=== PATIENT | male | born 1970 | race African-American/Black ===

== ENCOUNTER 2017-08-19 11:04 | Inpatient (IN) | payer OTHER ==
[~2017-08-19] VITALS: Ht 185.4 cm; Wt 121.1 kg
[~2017-08-19 11:04] MED LIST: HYDROCODON-ACE1 EAC7 PO; LISINOPRIL20 MG PO; NORCO 5-325 TA1 EACH PO; PERCOCET 5-3251 EACH PO; ZANTAC 150MG T150 MG PO; ZOFRAN4 MG PO
[2017-08-19 11:11] VITALS: BP 185/100
[2017-08-19 11:57] LABS: URINE BILIRUBIN NEGATIVE (Negative); URINE BLOOD 3+ (Negative); URINE CLARITY CLEAR; URINE COLOR YELLOW; URINE GLUCOSE-RANDOM NEGATIVE (Negative); URINE KETONES NEGATIVE (Negative); URINE LEUKOCYTES NEGATIVE (Negative); URINE NITRITE NEGATIVE (Negative); URINE PROTEIN NEGATIVE (Negative); URINE UROBILINOGEN 0.2 E.U./dl (0.2-1.0)
[2017-08-19 12:10] LABS: BACTERIA 1-9 Few /HPF (None Seen); CASTS None Seen /LPF (None Seen); CRYSTALS None Seen /LPF (None Seen); MUCUS 0-3 Light strn/LPF (None Seen); SQUAMOUS 0-3 Few /LPF (0-3); URINE WBC 0-5 Rare /HPF (0-5)
--- NOTE | 2017-08-19 12:15 | NUR ---
CT ABD PEL W/O COMPLEATED PT RETURNED TO ED
[2017-08-19 13:19] LABS: ABSOLUTE LYMPHOCYTES 0.9 thou/uL (0.8-5.3); ABSOLUTE MONOCYTES 0.4 thou/uL (0.0-1.2); BASOPHILS 0.5 %; EOSINOPHILS 0.6 %; HEMATOCRIT 44.7 % (42.0-52.0); HEMOGLOBIN 14.7 gm/dL (14.0-18.0); LYMPHOCYTES 13.7 %; MCH 29.3 pg (26.0-34.0); MCHC 32.9 g/dL (28.0-37.0); MCV 89.1 fL (80.0-100.0); MONOCYTES 5.7 %; MPV 7.4 fl. (7.2-11.1); NUCLEATED RBCS 0 /100WBC; PLATELET COUNT* 194 thou/uL (150-400); POLYS 79.5 %; RBC 5.01 mil/uL (4.50-6.00); RDW-CV 15.1 % (10.5-14.5); WBC 6.2 thou/uL (4.0-11.0)
[2017-08-19 13:52] LABS: ALKALINE PHOSPHATASE 65 U/L (46-116); ANION GAP 10 mmol/L (7-16); BUN 14 mg/dL (7-18); CALCIUM 9.2 mg/dL (8.5-10.1); CHLORIDE 104 mmol/L (98-107); CO2 27 mmol/L (21-32); GLUCOSE 112 mg/dL (70-99); LIPASE 83 U/L (73-393); POTASSIUM 4.2 mmol/L (3.5-5.1); SGOT 15 U/L (15-37); SGPT 29 U/L (30-65); SODIUM 141 mmol/L (136-145); TOTAL BILIRUBIN 0.3 mg/dL (<0.1-1.0); TOTAL PROTEIN 7.9 g/dL (6.4-8.2); TROPONIN-I LEVEL <0.06 ng/mL (<0.06)
--- NOTE | 2017-08-19 15:29 | EKG ---
[place] [address] ELECTROCARDIOGRAM REPORT Name: NÉSTOR OTERO Room: [address] M.R.#: [id number] Admission: 08/19/17 Attend Phys: Jameson Garvin Discharge: Date of : 70 Report #: [id number] THIS REPORT FOR: //name// [facility] ED Test Date: 2017-08-19 Test Time: 12:17:57 Pat Name: NÉSTOR OTERO Department: Room: [facility] Gender: M Translation Director: MS : 1970 Requested By: Miracle Wright Order Number: [id number] MD: Mik Hahn Measurements Intervals [place] Rate: 64 P: 15 [place]: 176 QRS: -48 QRSD: 94 T: 16 QT: 420 QTc: 434 Interpretive Statements Sinus rhythm LAD, consider left anterior fascicular block Compared to ECG 10/08/2016 15:54:07 T-wave abnormality no longer present Electronically Signed On 08-19-2017 15:29:19 AGILE TESTER by Mik Hahn [email or web address] <ELECTRONICALLY SIGNED> By: Mik Hahn MD, [facility] 08/19/17 1529 1217 1217 Mik Hahn MD, [facility] /EPI
[2017-08-19 15:57] VITALS: BP 130/78
[2017-08-19 16:50] VITALS: BP 174/91
--- NOTE | 2017-08-19 18:42 | NUR ---
PATIENT ARRIVED FROM ER AND SETTLED TO ROOM. PATIENT IS SLEEPY BUT ANSWERS QUESTIONS APPROPRIATELY. PATIENT HAS COMPLAINTS OF ABDOMINAL PAIN AND NAUSEA WITH VOMITING, TREATED PARTIALLY WITH MEDICATION. PATIENT IS NPO. PATIENT HAS CALL LIGHT WITHIN REACH. WILL CONTINUE TO MONITOR.
[2017-08-20 00:23] VITALS: BP 127/78
--- NOTE | 2017-08-20 04:30 | NUR ---
PATIENT SLEPT PART OF THE NIGHT. PATIENT ACCIDENTLY PULLED OUT IV. NEW IV WAS STARTED CHARTED. IV FLUIDS CONTINUE TO INFUSE AT 100 ML/HR. PATIENT WAS GIVEN PAIN AND NAUSEA MEDICINE TWICE THIS SHIFT WITH SOME RELIEF. PATIENT HAS STILL VOMITED A FEW TIMES. WILL CONTINUE TO MONITOR.
[2017-08-20 07:50] VITALS: BP 144/79
[2017-08-20 16:00] VITALS: BP 142/86
--- NOTE | 2017-08-20 16:57 | NUR ---
PATIENT RESTING IN BED. PATIENT HAS DENIED ANY NAUSEA TODAY AND IS TOLERATING REGULAR DIET. PATIENT HAD COMPLAINTS OF HEADACHE TREATED ADEQUATELY WITH TYLENOL. PATIENT HAD COMPLAINTS OF ABDOMINAL PAIN X 1 THIS AM TREATED WITH MORPHINE. PATIENT DENIES ANY NEEDS AT THIS TIME. CALL LIGHT WITHIN REACH. WILL CONTINUE TO MONITOR.
[2017-08-20 19:47] VITALS: BP 125/76
--- NOTE | 2017-08-21 05:08 | NUR ---
PT SLEPT AT INTERVALS DURING THE NIGHT, IV FLUIDS INFUSED, PRN PAIN MEDS PER REQUEST, PRN SLEEPING MED WITH RESULTS, PLEASANT, LARGE BM TONIGHT, CALL LIGHT IN REACH, WILL CONTINUE TO MONITOR
[2017-08-21 08:00] VITALS: BP 121/73
[2017-08-21 13:03] VITALS: BP 121/73
--- NOTE | 2017-08-21 15:26 | NUR ---
ASSUMED CARE THIS AM. MIGRAINE HEADACHE TREATED WELL WITH MORPHINE. ORDERS RECEIVED TO DISCHARGE. IV DISCONTINUED WITHOUT INCIDENT. DISCHARGE MEDICATION AND FOLLOW UP APPOINTMENTS DISCUSSED WITH AND GIVEN TO PATIENT, DENIES QUESTIONS AT THIS TIME. INDEPENDENTLY DRESSED SELF AND GATHERED PERSONAL EFFECTS, IN COMPANY OF PATIENT. AMBULATED WITHOUT DIFFICULTY IN COMPANY OF THIS ENVIRONMENTAL HEALTH SAFETY MANAGER TO MAIN ENTRANCE IN STABLE CONDITION.
--- NOTE | 2017-08-23 16:29 | CON ---
[address] [address] CONSULTATION Name: NÉSTOR OTERO Room: [address] M.R.#: [id number] Admission: 08/20/17 Attend Phys: Jameson Garvin Discharge: 08/21/17 Date of : 70 Report #: [id number] THIS REPORT FOR: //name// CC: RASHIDA physician/PCP Cooper Back DATE OF SERVICE: 08/20/2017 REASON FOR CONSULT: Epigastric pain and persistent vomiting. HISTORY OF PRESENT ILLNESS: This is a 47-year-old male with long history of intermittent abdominal pain and vomiting with completely symptom free episodes in between. He reports to me that he has been scoped multiple times in [facility], [facility], and [facility]. The patient reports that he also was given amitriptyline in the past, but they stopped it since it was not helping him much. He reports that his symptoms started when he started having right upper quadrant pain, which made him later that night sick to his stomach and since he was getting weaker as his vomiting was persisting, he decided to seek help. Since hospitalization, the patient had laboratory workup and CT imaging, which has been unrevealing. His lipase and liver function tests are all within normal limits. PAST MEDICAL HISTORY: Significant for history of cyclic vomiting syndrome with episodes of nausea, vomiting and abdominal pain with periods which are completely symptom free in between. The patient also has had gallbladder surgery due to cholelithiasis. He takes ranitidine for GERD and has hypertension. ALLERGIES AND MEDICATIONS: Please refer to hospital MAR. SOCIAL HISTORY: The patient admits to smoking marijuana. He denies tobaccoism, but may occasionally have alcoholic beverage. FAMILY HISTORY: Noncontributory. PHYSICAL EXAMINATION: VITAL SIGNS: Reveals blood pressure of 144/79, respirations 16, pulse 59, temperature 97.7. LUNGS: Clear. CARDIOVASCULAR: Regular. ABDOMEN: Soft, tender to palpation in the epigastric region. Bowel sounds are positive. NEUROLOGIC: The patient is alert, [place] [address] [address] CONSULTATION Name: OTERONÉSTOR Room: [address]#: [id number] Admission: 08/20/17 Attend Phys: Jameson Garvin Discharge: 08/21/17 Date of : 70 Report #: [id number] LABORATORY DATA: Reveal sodium of 141, potassium 4.2, BUN is 14, creatinine 1.0, glucose 112. AST is 15, ALT 29, alkaline phosphatase 65, total bilirubin 0.3, lipase 83. WBC is 6.2 with hemoglobin of 14.7 and platelet of 194. IMAGING: As discussed above. 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 We will ask him to remain abstinent from marijuana. He reports that he also has problem with constipation and currently feels constipated as he has not had bowel movement since . We will give him 10 ounce of magnesium citrate and then put him on MiraLax 17 g p.o. at bedtime. We will also place him on Protonix 40 mg q.a.m. and discontinue ranitidine. We will obtain his records from his previous endoscopies and make further recommendation. <ELECTRONICALLY SIGNED> By: Israel Plaza MD 08/23/17 1629 1426 [id number] Plaza MD /nt
[2018-03-30] MEDS ORDERED: PHENERGAN 25 MG25 MG PO (00:51)
[2018-03-30] MEDS ORDERED: ZOFRAN4 MG PO (00:51)
== END 2017-08-21 15:45 | disposition home or self-care (01) | DRG 694 ==
LOC: M.ERS 11:04 → M.TBA-ER 14:38 → M.3W 16:51
PROVIDERS: Physician Assistant; ADMIT Internal Medicine
DX: N20.0 Calculus of kidney (principal); K21.9 Gastro-esophageal reflux disease without esophagitis; I10 Essential (primary) hypertension; E86.0 Dehydration; K59.00 Constipation, unspecified; K52.9 Noninfective gastroenteritis and colitis, unspecified; G43.109 Migraine with aura, not intractable, without status migrainosus; Z90.49 Acquired absence of other specified parts of digestive tract; Z28.21 Immunization not carried out because of patient refusal

== ENCOUNTER 2017-08-30 03:28 | Emergency (ER) | payer OTHER ==
[~2017-08-30] VITALS: Ht 185.4 cm; Wt 113.4 kg
[2017-08-30 04:19] LABS: ABSOLUTE LYMPHOCYTES 0.5 thou/uL (0.8-5.3); ABSOLUTE MONOCYTES 0.3 thou/uL (0.0-1.2); ABSOLUTE NEUTROPHILS 4.4 thou/uL (1.6-8.1); BASOPHILS 0.2 %; EOSINOPHILS 0.1 %; HEMATOCRIT 40.1 % (42.0-52.0); HEMOGLOBIN 12.9 gm/dL (14.0-18.0); MCH 28.5 pg (26.0-34.0); MCV 89.1 fL (80.0-100.0); MPV 7.7 fl. (7.2-11.1); NUCLEATED RBCS 0 /100WBC; PLATELET COUNT* 173 thou/uL (150-400); POLYS 84.7 %; RBC 4.51 mil/uL (4.50-6.00); RDW-CV 14.8 % (10.5-14.5); WBC 5.2 thou/uL (4.0-11.0)
[2017-08-30 04:35] LABS: ANION GAP 13 mmol/L (7-16); BUN 16 mg/dL (7-18); CALCIUM 8.1 mg/dL (8.5-10.1); CHLORIDE 107 mmol/L (98-107); CO2 24 mmol/L (21-32); CREATININE 0.9 mg/dL (0.6-1.3); GLUCOSE 140 mg/dL (70-99); POTASSIUM 3.6 mmol/L (3.5-5.1); SODIUM 144 mmol/L (136-145)
[2017-08-30 04:44] LABS: ALBUMIN 3.4 g/dL (3.4-5.0); ALKALINE PHOSPHATASE 49 U/L (46-116); LIPASE 72 U/L (73-393); SGOT 14 U/L (15-37); SGPT 22 U/L (30-65); TOTAL BILIRUBIN 0.5 mg/dL (<0.1-1.0); TOTAL PROTEIN 6.6 g/dL (6.4-8.2); TROPONIN-I LEVEL <0.06 ng/mL (<0.06)
[2017-08-30 05:36] LABS: URINE BILIRUBIN NEGATIVE (Negative); URINE BLOOD 3+ (Negative); URINE CLARITY CLEAR; URINE COLOR YELLOW; URINE GLUCOSE-RANDOM NEGATIVE (Negative); URINE KETONES TRACE (Negative); URINE LEUKOCYTES-REFLEX NEGATIVE (Negative); URINE NITRITE-REFLEX NEGATIVE (Negative); URINE PROTEIN TRACE (Negative); URINE SPECIFIC GRAVITY >= 1.030 (1.005-1.030); URINE UROBILINOGEN 0.2 E.U./dl (0.2-1.0)
[2017-08-30] MEDS ORDERED: ZOFRAN ODT4 MG PO (05:42)
[2017-08-30 05:43] LABS: AMP/METHAMP Negative (Negative); BACTERIA-REFLEX 1-9 Few /HPF (None Seen); BARBITURATES Negative (Negative); BENZODIAZEPINES Negative (Negative); CASTS None Seen /LPF (None Seen); COCAINE Negative (Negative); CRYSTALS None Seen /LPF (None Seen); METHADONE Negative (Negative); MUCUS 4-6 Moderate strn/LPF (None Seen); OPIATES Negative (Negative); PCP Negative (Negative); SQUAMOUS 0-3 Few /LPF (0-3); THC POSITIVE (Negative); URINE RBC 3-10 Few /HPF (0-2); URINE WBC-REFLEX 0-5 Rare /HPF (0-5)
[2017-08-30 05:54] VITALS: BP 148/98
--- NOTE | 2017-08-30 17:43 | EKG ---
[place] [address] ELECTROCARDIOGRAM REPORT Name: NÉSTOR OTERO Room: [facility]#: [id number] Admission: 08/30/17 Attend Phys: Discharge: 08/30/17 Date of : 70 Report #: [id number] THIS REPORT FOR: //name// [facility] ED Test Date: 2017-08-30 Test Time: 04:06:37 Pat Name: NÉSTOR OTERO Department: Room: Gender: M Multimedia Instructional Designer: ALBA : 1970 Requested By: Brett Dick Order Number: [id number] MD: Nathanael Kenyon Measurements Intervals [place] Rate: 63 P: 39 [place]: 187 QRS: -51 QRSD: 98 T: -8 QT: 434 QTc: 445 Interpretive Statements Sinus rhythm Left anterior fascicular block Borderline T abnormalities, inferior leads Compared to ECG 08/19/2017 12:17:57 T-wave abnormality now present Electronically Signed On 08-30-2017 17:43:46 HELP DESK TECHNICIAN by Nathanael Kenyon [email or web address] <ELECTRONICALLY SIGNED> By: Nathanael Kenyon MD, [facility] 08/30/17 1743 0406 0406 Nathanael Kenyon MD, [facility] /EPI
[2018-03-30] MEDS ORDERED: PHENERGAN 25 MG25 MG PO (00:51)
[2018-03-30] MEDS ORDERED: ZOFRAN4 MG PO (00:51)
== END 2017-08-30 05:55 | disposition home or self-care (01) ==
LOC: M.ERS 03:28
PROVIDERS: Emergency Medicine Emergency Medical Services
DX: G43.A0 Cyclical vomiting, in migraine, not intractable (principal); K21.9 Gastro-esophageal reflux disease without esophagitis; I10 Essential (primary) hypertension; F17.210 Nicotine dependence, cigarettes, uncomplicated

== ENCOUNTER 2018-02-05 13:08 | Emergency (ER) | payer OTHER ==
[~2018-02-05] VITALS: Ht 185.4 cm; Wt 108.9 kg
[~2018-02-05 13:08] MED LIST changes: +ZOFRAN ODT4 MG PO
[2018-02-05] MEDS ORDERED: IBUPROFEN 800800 M1 PO (13:17)
[2018-02-05] MEDS ORDERED: ANTIBIOTIC (13:17)
[2018-02-05] MEDS ORDERED: PENICILLIN VK500 MG PO (13:53)
[2018-02-05] MEDS ORDERED: ULTRAM 50MG TAB50 MG PO (13:53)
[2018-02-05 14:17] VITALS: BP 140/82
[2018-03-30] MEDS ORDERED: PHENERGAN 25 MG25 MG PO (00:51)
[2018-03-30] MEDS ORDERED: ZOFRAN4 MG PO (00:51)
== END 2018-02-05 14:19 | disposition home or self-care (01) ==
LOC: M.ERS 13:08
DX: K08.89 Other specified disorders of teeth and supporting structures (principal); I10 Essential (primary) hypertension; Z90.49 Acquired absence of other specified parts of digestive tract; F17.210 Nicotine dependence, cigarettes, uncomplicated; F12.10 Cannabis abuse, uncomplicated

== ENCOUNTER 2018-03-29 11:37 | Emergency (ER) | payer OTHER ==
[~2018-03-29] VITALS: Ht 177.8 cm; Wt 115.3 kg
[~2018-03-29 11:37] MED LIST changes: +ANTIBIOTIC; +IBUPROFEN 800800 M1 PO; +PENICILLIN VK500 MG PO; +ULTRAM 50MG TAB50 MG PO
[2018-03-29] MEDS ORDERED: ZOFRAN ODT4 MG SUBLING (12:16)
[2018-03-29 12:47] VITALS: BP 184/91
--- NOTE | 2018-03-29 16:44 | EKG ---
[place] [address] ELECTROCARDIOGRAM REPORT Name: NÉSTOR OTERO Room: [facility]#: [id number] Admission: 03/29/18 Attend Phys: Discharge: 03/29/18 Date of : 70 Report #: [id number] THIS REPORT FOR: //name// [facility] ED Test Date: 2018-03-29 Test Time: 11:43:13 Pat Name: NÉSTOR OTERO Department: Room: Gender: M Weapons Mechanic: Richy LEDESMA : 1970 Requested By: [place] Order Number: [id number] MD: Markus Patel Measurements Intervals [place] Rate: 54 P: 52 [place]: 185 QRS: -31 QRSD: 97 T: 1 QT: 451 QTc: 428 Interpretive Statements Sinus bradycardia poor r wave progression Left anterior fasicular block Baseline wander in lead(s) II,III,aVL,aVF,V1,V3,V4,V5,V6 Compared to ECG 08/30/2017 04:06:37 rate slowed Electronically Signed On 03-29-2018 16:44:25 CDT by Markus Patel [email or web address] <ELECTRONICALLY SIGNED> By: Markus Patel MD, [facility] 03/29/18 1644 1143 1143 Markus Patel MD, [facility] /EPI
[2018-03-30] MEDS ORDERED: ZOFRAN4 MG PO (00:51)
[2018-03-30] MEDS ORDERED: PHENERGAN 25 MG25 MG PO (00:51)
== END 2018-03-29 12:48 | disposition home or self-care (01) ==
LOC: M.ERS 11:37
DX: G89.29 Other chronic pain (principal); R10.10 Upper abdominal pain, unspecified; G43.A0 Cyclical vomiting, in migraine, not intractable; I10 Essential (primary) hypertension; F17.210 Nicotine dependence, cigarettes, uncomplicated; Z90.49 Acquired absence of other specified parts of digestive tract

== ENCOUNTER 2018-03-29 21:45 | Emergency (ER) | payer OTHER ==
[~2018-03-29] VITALS: Ht 185.4 cm; Wt 115.7 kg
[~2018-03-29 21:45] MED LIST changes: +ZOFRAN ODT4 MG SUBLING
[2018-03-29 22:54] LABS: HEMATOCRIT 44.3 % (42.0-52.0); HEMOGLOBIN 14.9 gm/dL (14.0-18.0); MCH 29.8 pg (26.0-34.0); MCHC 33.6 g/dL (28.0-37.0); MCV 88.5 fL (80.0-100.0); MPV 8.3 fl. (7.2-11.1); NUCLEATED RBCS 0 /100WBC; PLATELET COUNT* 234 thou/uL (150-400); RBC 5.01 mil/uL (4.50-6.00); RDW-CV 14.2 % (10.5-14.5); WBC 7.9 thou/uL (4.0-11.0)
[2018-03-29 23:22] LABS: ABSOLUTE LYMPHOCYTES 0.2 thou/uL (0.8-5.3); ABSOLUTE MONOCYTES 0.5 thou/uL (0.0-1.2); ABSOLUTE NEUTROPHILS 7.2 thou/uL (1.6-8.1); PLATELET ESTIMATE ADEQUATE
[2018-03-29 23:56] LABS: POTASSIUM 3.8 mmol/L (3.5-5.1)
[2018-03-29 23:57] LABS: ALBUMIN 3.9 g/dL (3.4-5.0); CALCIUM 9.2 mg/dL (8.5-10.1); TOTAL BILIRUBIN 0.4 mg/dL (<0.1-1.0); TOTAL PROTEIN 7.9 g/dL (6.4-8.2)
[2018-03-30 00:02] LABS: URINE BILIRUBIN NEGATIVE (Negative); URINE BLOOD 3+ (Negative); URINE CLARITY CLEAR; URINE COLOR YELLOW; URINE GLUCOSE-RANDOM NEGATIVE (Negative); URINE KETONES TRACE (Negative); URINE LEUKOCYTES-REFLEX NEGATIVE (Negative); URINE NITRITE-REFLEX NEGATIVE (Negative); URINE PROTEIN 1+ (Negative); URINE SPECIFIC GRAVITY 1.025 (1.005-1.030); URINE UROBILINOGEN 0.2 E.U./dl (0.2-1.0)
[2018-03-30 00:10] LABS: BACTERIA-REFLEX 1-9 Few /HPF (None Seen); CASTS None Seen /LPF (None Seen); CRYSTALS None Seen /LPF (None Seen); MUCUS >6 Heavy strn/LPF (None Seen); SQUAMOUS 0-3 Few /LPF (0-3); URINE RBC >20 Many /HPF (0-2); URINE WBC-REFLEX None Seen /HPF (0-5)
[2018-03-30 00:12] LABS: AMP/METHAMP Negative (Negative); BARBITURATES Negative (Negative); BENZODIAZEPINES Negative (Negative); COCAINE Negative (Negative); METHADONE Negative (Negative); OPIATES Negative (Negative); PCP Negative (Negative); THC POSITIVE (Negative)
[2018-03-30] MEDS ORDERED: PHENERGAN 25 MG25 MG PO (00:51)
[2018-03-30] MEDS ORDERED: ZOFRAN4 MG PO (00:51)
[2018-03-30 02:18] VITALS: BP 120/78
== END 2018-03-29 23:59 | disposition still patient (30) ==
LOC: M.ERS 21:45
PROVIDERS: Nurse Practitioner Family
DX: G89.29 Other chronic pain (principal); R10.13 Epigastric pain; R11.2 Nausea with vomiting, unspecified; F12.10 Cannabis abuse, uncomplicated; I10 Essential (primary) hypertension; F17.210 Nicotine dependence, cigarettes, uncomplicated; Z90.49 Acquired absence of other specified parts of digestive tract

== ENCOUNTER 2018-05-03 15:50 | Emergency (ER) | payer OTHER ==
[~2018-05-03] VITALS: Ht 185.4 cm; Wt 111.1 kg
[~2018-05-03 15:50] MED LIST changes: +PHENERGAN 25 MG25 MG PO
[2018-05-03] MEDS ORDERED: BLOOD PRESSURE MED (16:08)
[2018-05-03 18:08] LABS: ABSOLUTE LYMPHOCYTES 0.7 thou/uL (0.8-5.3); ABSOLUTE MONOCYTES 0.3 thou/uL (0.0-1.2); ABSOLUTE NEUTROPHILS 5.3 thou/uL (1.6-8.1); BASOPHILS 0.3 %; EOSINOPHILS 0.4 %; HEMATOCRIT 44.3 % (42.0-52.0); HEMOGLOBIN 14.7 gm/dL (14.0-18.0); LYMPHOCYTES 11.6 %; MCH 29.8 pg (26.0-34.0); MCHC 33.1 g/dL (28.0-37.0); MCV 89.9 fL (80.0-100.0); MONOCYTES 5.1 %; NUCLEATED RBCS 0 /100WBC; PLATELET COUNT* 180 thou/uL (150-400); POLYS 82.6 %; RBC 4.93 mil/uL (4.50-6.00); RDW-CV 14.5 % (10.5-14.5); WBC 6.4 thou/uL (4.0-11.0)
[2018-05-03 18:12] LABS: ANION GAP 7 mmol/L (7-16); BUN 18 mg/dL (7-18); CALCIUM 9.1 mg/dL (8.5-10.1); CHLORIDE 103 mmol/L (98-107); CO2 27 mmol/L (21-32); CREATININE 1.1 mg/dL (0.6-1.3); GLUCOSE 126 mg/dL (70-99); POTASSIUM 3.3 mmol/L (3.5-5.1); SODIUM 137 mmol/L (136-145)
[2018-05-03 18:19] LABS: ALBUMIN 3.9 g/dL (3.4-5.0); ALKALINE PHOSPHATASE 61 U/L (46-116); LIPASE 82 U/L (73-393); SGOT 17 U/L (15-37); SGPT 22 U/L (30-65); TOTAL BILIRUBIN 0.5 mg/dL (<0.1-1.0); TOTAL PROTEIN 8.4 g/dL (6.4-8.2); TROPONIN-I LEVEL <0.06 ng/mL (<0.06)
[2018-05-03] MEDS ORDERED: COMPAZINE10 MG PO (18:25)
[2018-05-03] MEDS ORDERED: ONDANSETRON HCL4 M2 PO (18:25)
[2018-05-03 18:39] VITALS: BP 214/111
--- NOTE | 2018-05-04 16:36 | EKG ---
[place] [address] ELECTROCARDIOGRAM REPORT Name: OTERONÉSTOR Room: [facility]#: [id number] Admission: 05/03/18 Attend Phys: Discharge: 05/03/18 Date of : 70 Report #: [id number] THIS REPORT FOR: //name// [facility] ED Test Date: 2018-05-03 Test Time: 16:01:16 Pat Name: NÉSTOR OTERO Department: Room: Gender: M Translator/Interpreter: Richy ESPOSITO : 1970 Requested By: Mila Huffman Order Number: [id number] MD: Jcarlos Lauren Measurements Intervals [place] Rate: 56 P: 40 [place]: 168 QRS: -39 QRSD: 111 T: 22 QT: 461 QTc: 445 Interpretive Statements Sinus rhythm Left axis deviation Compared to ECG 03/29/2018 11:43:13 Left-axis deviation now present Sinus bradycardia no longer present Poor R-wave progression no longer present Electronically Signed On 05-04-2018 16:36:37 CDT by Jcarlos Lauren [email or web address] <ELECTRONICALLY SIGNED> By: Jcarlos Lauren MD, [facility] 05/04/18 1636 1601 1601 Jcarlos Lauren MD, [facility] /EPI
== END 2018-05-03 18:40 | disposition home or self-care (01) ==
LOC: M.ERS 15:50
PROVIDERS: Nurse Practitioner Family
DX: R10.84 Generalized abdominal pain (principal); G43.A0 Cyclical vomiting, in migraine, not intractable; R42 Dizziness and giddiness; I10 Essential (primary) hypertension; F17.210 Nicotine dependence, cigarettes, uncomplicated; Z90.49 Acquired absence of other specified parts of digestive tract

== ENCOUNTER 2018-08-10 12:33 | Emergency (ER) | payer OTHER ==
[~2018-08-10] VITALS: Ht 185.4 cm; Wt 108.9 kg
[~2018-08-10 12:33] MED LIST changes: +BLOOD PRESSURE MED; +COMPAZINE10 MG PO; +ONDANSETRON HCL4 M2 PO
[2018-08-10 13:48] LABS: URINE BILIRUBIN NEGATIVE (Negative); URINE BLOOD 2+ (Negative); URINE CLARITY CLEAR; URINE COLOR YELLOW; URINE GLUCOSE-RANDOM NEGATIVE (Negative); URINE KETONES NEGATIVE (Negative); URINE LEUKOCYTES-REFLEX NEGATIVE (Negative); URINE NITRITE-REFLEX NEGATIVE (Negative); URINE PROTEIN NEGATIVE (Negative); URINE UROBILINOGEN 0.2 E.U./dl (0.2-1.0)
[2018-08-10 14:05] LABS: AMP/METHAMP Negative (Negative); BARBITURATES Negative (Negative); BENZODIAZEPINES Negative (Negative); COCAINE Negative (Negative); METHADONE Negative (Negative); OPIATES Negative (Negative); PCP Negative (Negative); THC POSITIVE (Negative)
[2018-08-10 14:10] LABS: ABSOLUTE LYMPHOCYTES 0.8 thou/uL (0.8-5.3); ABSOLUTE MONOCYTES 0.3 thou/uL (0.0-1.2); ABSOLUTE NEUTROPHILS 4.5 thou/uL (1.6-8.1); BASOPHILS 0.5 %; EOSINOPHILS 0.5 %; HEMATOCRIT 41.6 % (42.0-52.0); HEMOGLOBIN 13.4 gm/dL (14.0-18.0); LYMPHOCYTES 14.1 %; MCH 29.3 pg (26.0-34.0); MCHC 32.2 g/dL (28.0-37.0); MCV 90.8 fL (80.0-100.0); MONOCYTES 5.2 %; MPV 7.9 fl. (7.2-11.1); NUCLEATED RBCS 0 /100WBC; PLATELET COUNT* 189 thou/uL (150-400); POLYS 79.7 %; RBC 4.58 mil/uL (4.50-6.00); RDW-CV 14.1 % (10.5-14.5); WBC 5.7 thou/uL (4.0-11.0)
[2018-08-10 14:14] LABS: CALCIUM 8.6 mg/dL (8.5-10.1); POTASSIUM 3.5 mmol/L (3.5-5.1)
[2018-08-10 14:18] LABS: ALBUMIN 3.6 g/dL (3.4-5.0); TOTAL BILIRUBIN 0.3 mg/dL (<0.1-1.0); TOTAL PROTEIN 7.7 g/dL (6.4-8.2)
[2018-08-10 14:26] LABS: SQUAMOUS NONE SEEN /LPF (0-3)
[2018-08-10 14:27] LABS: URINE WBC-REFLEX 0-5 Rare /HPF (0-5)
[2018-08-10 14:28] LABS: BACTERIA-REFLEX 1-9 Few /HPF (None Seen); CASTS None Seen /LPF (None Seen); CRYSTALS None Seen /LPF (None Seen); MUCUS 0-3 Light strn/LPF (None Seen)
--- NOTE | 2018-08-10 15:12 | EKG ---
[place] [address] ELECTROCARDIOGRAM REPORT Name: ALEJO OTEROERT Room: [facility]#: [id number] Admission: 08/10/18 Attend Phys: Discharge: Date of : 70 Report #: [id number] THIS REPORT FOR: //name// [facility] ED Test Date: 2018-08-10 Test Time: 13:21:21 Pat Name: NÉSTOR OTERO Department: Room: Gender: M Hot Tar Roofer: Shital : 1970 Requested By: Nain Call Order Number: [id number] MD: Markus Patel Measurements Intervals [place] Rate: 62 P: 26 [place]: 179 QRS: -38 QRSD: 99 T: -13 QT: 448 QTc: 455 Interpretive Statements Sinus rhythm Left axis deviation Borderline T abnormalities, inferior leads Baseline wander in lead(s) V1,V2,V3,V6 Compared to ECG 05/03/2018 16:01:16 no change Electronically Signed On 08-10-2018 15:12:26 PARKING ATTENDANT by Markus Patel [email or web address] <ELECTRONICALLY SIGNED> By: Markus Patel MD, [facility] 08/10/18 1512 1321 1321 Markus Patel MD, [facility] /EPI
[2018-08-10] MEDS ORDERED: BENTYL 20 MG TA20 M1 PO (15:34)
[2018-08-10] MEDS ORDERED: CARAFATE 1 GM TA1 GM PO (15:34)
[2018-08-10] MEDS ORDERED: ZOFRAN ODT4 MG PO (15:34)
[2018-08-10] MEDS ORDERED: PEPCID40 MG PO (15:34)
[2018-08-10 16:25] VITALS: BP 181/82
== END 2018-08-10 16:30 | disposition home or self-care (01) ==
LOC: M.ERS 12:33
PROVIDERS: Nurse Practitioner Family
DX: K29.70 Gastritis, unspecified, without bleeding (principal); I10 Essential (primary) hypertension; Z90.49 Acquired absence of other specified parts of digestive tract; F17.210 Nicotine dependence, cigarettes, uncomplicated